=== PATIENT | female | born 1955 | race Caucasian/White ===

== ENCOUNTER 2016-10-13 11:48 | Emergency (ER) | payer BC ==
[~2016-10-13] VITALS: Ht 165.1 cm; Wt 90.0 kg
[~2016-10-13 11:48] MED LIST: LORT7.5T3 PO; Z.0.NO CURRENT MEDS
[2016-10-13 11:51] VITALS: BP 195/90; PULSE 97; RESP 24; TEMP 97.4; O2SAT 96
--- NOTE | 2016-10-13 11:58 | PD ---
Physical Exam Time Seen by Provider: 11:54 Narrative 61 YO female presents by private vehicle with C/O of chest pain x 3 days. Patient reports pain is located under right breast & radiates to the back. Associated with SOB. Severity 01/09. Pain worse today prompting visit. Patient seen at Triage Desk. Vital signs reviewed. Awaiting Tx bed. Data Data Last Documented VS Vital Signs Date Time Temp Pulse Resp B/P Pulse Ox O2 Delivery O2 Flow Rate FiO2 10/13/16 11:51 97.4 97 24 195/90 96 Room Air Orders Electrocardiogram (10/13/16 ) MDM Supervised Visit with QUAN: Jannet Xiong Oct 13, 2016 11:58
[2016-10-13] MEDS ORDERED: ENAL5TAB PO (12:40)
[2016-10-13] MEDS ORDERED: VENTAER INH (12:40)
[2016-10-13] MEDS ORDERED: UMEC1AER INH (12:40)
[2016-10-13] MEDS ORDERED: KETOROLAC TROMETHAMINE 30 MG/ML (IVP) VIAL IV PUSH ONE (13:15)
[2016-10-13] MEDS ORDERED: SODIUM CHLORIDE 0.9% FLUSH 10 ML FLUSH IVF PRN (13:15)
[2016-10-13] MEDS ORDERED: MORPHINE SULFATE 4 MG/ML INJ IV PUSH ONE ×2 (13:15→15:15)
[2016-10-13] MEDS ORDERED: ONDANSETRON HCL 4 MG/2 ML VIAL IV PUSH ONE (13:15)
--- NOTE | 2016-10-13 13:24 | PD ---
HPI Chief Complaint: Chest Pain Time Seen by Provider: 12:42 Travel History International Travel<30 days: No Contact w/Intl Traveler<30days: No Traveled to known affect area: No History of Present Illness HPI The patient is a 61-year-old female who presents emergency department for right sided chest pain at 3 days' duration. The patient complains of right lower chest wall pain radiates from the right upper quadrant of the abdomen and right lower chest wall to the back. The pain is present at rest, sharp, constant, not associated with any nausea or vomiting. The patient's pain is slightly worse with inspiration, however, she denies any acute cough. She denies any acute shortness of breath, does have a history of chronic shortness of breath secondary to COPD. The patient does complain of right sided pain as aforementioned, denies any rash over the affected area and denies any history of shingles. She denies any trauma to the affected area and denies any nausea, vomiting, or postprandial symptoms. She denies any history of gallbladder- related disorders. Symptoms are moderate, there are no current alleviating or exacerbating factors. PFSH Past Medical History Cancer: No COPD: Yes Diabetes: No Hepatitis: No Hiatal Hernia: No Hypertension: Yes Sleep Apnea: Yes Thyroid Disease: No Past Surgical History Gynecologic Surgery: Yes (TUBAL, EXPLORATORY LAP) Pacemaker: No Social History Alcohol Use: No Tobacco Use: Yes Substance Use: No Allergies-Medications (Allergen,Severity, Reaction): Coded Allergies: Sulfa (Unverified Allergy, Intermediate, Rash, 01/01/11) Reported Meds & Prescriptions Reported Meds & Active Scripts Active Reported Enalapril (Enalapril Maleate) 5 Mg Tab 5 Mg PO DAILY Anoro Ellipta Inh (Umeclidinium/Vilanterol) 62.5-25 Mcg/Act Aero 1 Puff INH DAILY Ventolin Hfa 18 GM Inh (Albuterol Sulfate) 90 Mcg/Act Aer 2 Puff INH Q4-6H PRN Review of Systems Except as stated in HPI: all other systems reviewed are Neg General / Constitutional: No: Fever Cardiovascular: Positive: Chest Pain or Discomfort (right sided pain) Respiratory: Positive: Shortness of Breath, Pleuritic Pain Gastrointestinal: No: Nausea, Vomiting, Abdominal Pain Genitourinary: No: Dysuria, Hematuria, Decreased Urinary Output Skin: No Rash Physical Exam Narrative GENERAL: Awake, alert, pleasant 61-year-old female who appears her stated age and is in no acute respiratory distress. SKIN: Focused skin assessment warm/dry. No stigmata of shingles. HEAD: Atraumatic. Normocephalic. EYES: Pupils equal and round. No scleral icterus. No injection or drainage. ENT: No nasal bleeding or discharge. Mucous membranes pink and moist. NECK: Trachea midline. No JVD. CARDIOVASCULAR: Regular rate and rhythm. No murmur appreciated. Heart rate in the 80s. Right chest wall is minimally tender palpation, minimally reproduces pain. RESPIRATORY: No accessory muscle use. Clear to auscultation. Breath sounds equal bilaterally. GASTROINTESTINAL: Abdomen soft, non-tender, nondistended. Negative Lynn's. Back: No CVA tenderness. MUSCULOSKELETAL: No obvious deformities. No clubbing. No cyanosis. No edema. NEUROLOGICAL: Awake and alert. No obvious cranial nerve deficits. Motor grossly within normal limits. Normal speech. PSYCHIATRIC: Appropriate mood and affect; insight and judgment normal. Data Data Last Documented VS Vital Signs Date Time Temp Pulse Resp B/P Pulse Ox O2 Delivery O2 Flow Rate FiO2 10/13/16 15:55 18 10/13/16 15:18 96 Room Air 10/13/16 15:18 74 123/59 10/13/16 11:51 97.4 Orders Electrocardiogram (10/13/16 ) Complete Blood Count With Diff (10/13/16 13:10) Comprehensive Metabolic Panel (10/13/16 13:10) D-Dimer (10/13/16 13:10) Act Partial Throm Time (Ptt) (10/13/16 13:10) Prothrombin Time / Inr (Pt) (10/13/16 13:10) Magnesium (Mg) (10/13/16 13:10) Ckmb (Isoenzyme) Profile (10/13/16 13:10) Troponin I (10/13/16 13:10) Iv Access Insert/Monitor (10/13/16 13:10) Electrocardiogram (10/13/16 13:10) Ecg Monitoring (10/13/16 13:10) Oximetry (10/13/16 13:10) Oxygen Administration (10/13/16 13:10) Chest, Single Ap (10/13/16 13:10) Sodium Chloride 0.9% Flush (Ns Flush) (10/13/16 13:15) Ketorolac Inj (Toradol Inj) (10/13/16 13:15) Morphine Inj (Morphine Inj) (10/13/16 13:15) Ondansetron Inj (Zofran Inj) (10/13/16 13:15) Us Abdomen Gallbladder (10/13/16 ) Urinalysis - C+S If Indicated (10/13/16 13:24) Ct Pulmonary Angiogram (10/13/16 ) Morphine Inj (Morphine Inj) (10/13/16 15:15) Iohexol 350 Inj (Omnipaque 350 Inj) (10/13/16 16:06) Labs Laboratory Tests Test 10/13/16 10/13/16 10/13/16 13:30 14:25 14:35 White Blood Count 7.0 TH/MM3 Red Blood Count 4.70 MIL/MM3 Hemoglobin 14.9 GM/DL Hematocrit 45.1 % Mean Corpuscular Volume 96.0 FL Mean Corpuscular Hemoglobin 31.6 PG Mean Corpuscular Hemoglobin 32.9 % Concent Red Cell Distribution Width 14.0 % Platelet Count 312 TH/MM3 Mean Platelet Volume 8.5 FL Neutrophils (%) (Auto) 89.2 % Lymphocytes (%) (Auto) 8.8 % Monocytes (%) (Auto) 1.5 % Eosinophils (%) (Auto) 0.2 % Basophils (%) (Auto) 0.3 % Neutrophils # (Auto) 6.2 TH/MM3 Lymphocytes # (Auto) 0.6 TH/MM3 Monocytes # (Auto) 0.1 TH/MM3 Eosinophils # (Auto) 0.0 TH/MM3 Basophils # (Auto) 0.0 TH/MM3 CBC Comment DIFF FINAL Differential Comment Prothrombin Time 10.4 SEC Prothromb Time International 0.9 RATIO Ratio Activated Partial 28.9 SEC Thromboplast Time D-Dimer Quantitative (PE/DVT) 0.83 MG/L FEU Sodium Level 139 MEQ/L Potassium Level 4.1 MEQ/L Chloride Level 106 MEQ/L Carbon Dioxide Level 25.7 MEQ/L Anion Gap 7 MEQ/L Blood Urea Nitrogen 13 MG/DL Creatinine 0.76 MG/DL Estimat Glomerular Filtration 77 ML/MIN Rate Random Glucose 120 MG/DL Calcium Level 9.2 MG/DL Magnesium Level 2.1 MG/DL Total Bilirubin 0.2 MG/DL Aspartate Amino Transf 12 U/L (AST/SGOT) Alanine Aminotransferase 22 U/L (ALT/SGPT) Alkaline Phosphatase 78 U/L Total Creatine Kinase 97 U/L Troponin I LESS THAN 0.02 NG/ML Total Protein 7.1 GM/DL Albumin 3.5 GM/DL Urine Color YELLOW Urine Turbidity CLEAR Urine pH 7.5 Urine Specific [place] 1.017 Urine Protein TRACE mg/dL Urine Glucose (UA) NEG mg/dL Urine Ketones NEG mg/dL Urine Occult Blood NEG Urine Nitrite NEG Urine Bilirubin NEG Urine Urobilinogen LESS THAN 2.0 MG/DL Urine Leukocyte Esterase NEG Urine RBC 2 /hpf Urine WBC LESS THAN 1 /hpf Urine Squamous Epithelial 4 /hpf Cells Urine Bacteria RARE /hpf Urine Mucus FEW /lpf Microscopic Urinalysis Comment CULT NOT INDICATED MDM Medical Decision Making Medical Screen Exam Complete: Yes Emergency Medical Condition: Yes Medical Record Reviewed: Yes Interpretation(s) Ultrasound of the gallbladder reveals small amount of sludge in the gallbladder. Otherwise gallbladder is unremarkable sonographically without evidence for acute cholecystitis. Diffuse increased hepatic echogenicity without volume loss consistent with hepatic steatosis. Laboratory Tests Test 10/13/16 10/13/16 10/13/16 13:30 14:25 14:35 White Blood Count 7.0 TH/MM3 Red Blood Count 4.70 MIL/MM3 Hemoglobin 14.9 GM/DL Hematocrit 45.1 % Mean Corpuscular Volume 96.0 FL Mean Corpuscular Hemoglobin 31.6 PG Mean Corpuscular Hemoglobin 32.9 % Concent Red Cell Distribution Width 14.0 % Platelet Count 312 TH/MM3 Mean Platelet Volume 8.5 FL Neutrophils (%) (Auto) 89.2 % Lymphocytes (%) (Auto) 8.8 % Monocytes (%) (Auto) 1.5 % Eosinophils (%) (Auto) 0.2 % Basophils (%) (Auto) 0.3 % Neutrophils # (Auto) 6.2 TH/MM3 Lymphocytes # (Auto) 0.6 TH/MM3 Monocytes # (Auto) 0.1 TH/MM3 Eosinophils # (Auto) 0.0 TH/MM3 Basophils # (Auto) 0.0 TH/MM3 CBC Comment DIFF FINAL Differential Comment Prothrombin Time 10.4 SEC Prothromb Time International 0.9 RATIO Ratio Activated Partial 28.9 SEC Thromboplast Time D-Dimer Quantitative (PE/DVT) 0.83 MG/L FEU Sodium Level 139 MEQ/L Potassium Level 4.1 MEQ/L Chloride Level 106 MEQ/L Carbon Dioxide Level 25.7 MEQ/L Anion Gap 7 MEQ/L Blood Urea Nitrogen 13 MG/DL Creatinine 0.76 MG/DL Estimat Glomerular Filtration 77 ML/MIN Rate Random Glucose 120 MG/DL Calcium Level 9.2 MG/DL Magnesium Level 2.1 MG/DL Total Bilirubin 0.2 MG/DL Aspartate Amino Transf 12 U/L (AST/SGOT) Alanine Aminotransferase 22 U/L (ALT/SGPT) Alkaline Phosphatase 78 U/L Total Creatine Kinase 97 U/L Troponin I LESS THAN 0.02 NG/ML Total Protein 7.1 GM/DL Albumin 3.5 GM/DL Urine Color YELLOW Urine Turbidity CLEAR Urine pH 7.5 Urine Specific Cand[place] 1.017 Urine Protein TRACE mg/dL Urine Glucose (UA) NEG mg/dL Urine Ketones NEG mg/dL Urine Occult Blood NEG Urine Nitrite NEG Urine Bilirubin NEG Urine Urobilinogen LESS THAN 2.0 MG/DL Urine Leukocyte Esterase NEG Urine RBC 2 /hpf Urine WBC LESS THAN 1 /hpf Urine Squamous Epithelial 4 /hpf Cells Urine Bacteria RARE /hpf Urine Mucus FEW /lpf Microscopic Urinalysis Comment CULT NOT INDICATED Last Impressions Chest X-Ray 10/13/16 1310 Signed Impressions: Service Date/Time: Thursday, October 13, 2016 13:30 - CONCLUSION: 1. Mild left lower lobe airspace disease of unknown chronicity. Differential considerations include atelectasis/scarring versus airspace infection or less likely aspiration in the appropriate clinical setting. Hiram Tubbs MD Gall Bladder Ultrasound 10/13/16 0000 Signed Impressions: Service Date/Time: Thursday, October 13, 2016 13:40 - CONCLUSION: 1. Small amount of sludge in the gallbladder. Otherwise, gallbladder is unremarkable sonographically without evidence for acute cholecystitis. 2. Diffusely increased hepatic echogenicity without volume loss consistent with hepatic steatosis. Hiram Tubbs MD CT Angiography 10/13/16 0000 Signed Impressions: Service Date/Time: Thursday, October 13, 2016 16:06 - CONCLUSION: 1. No pulmonary embolus identified. 2. COPD changes. Kole Browne MD Differential Diagnosis Differential diagnosis includes pleurisy, pneumonia, pleural effusion, pulmonary embolism, costochondritis, shingles, choledocholithiasis, cholecystitis, pyelonephritis. Narrative Course IV was established, labs are drawn and sent, and the patient was placed on cardiac telemetry monitoring and continuous pulse oximetry monitoring. EKG was ordered and interpreted. Chest x-ray was obtained. D-dimer was sent to lab. Ultrasound of the gallbladder was ordered. The patient was administered morphine, Toradol, Zofran, and IV fluids. UA was sent to lab. Chest x-ray was negative. Ultrasound reveals sludge but no evidence of acute cholecystitis. D- dimer was positive, therefore, CT pulmonary angiogram was ordered. CT pulmonary angiogram is negative for PE, does reveal COPD. No obvious source of the patient's right sided chest wall pain/flank pain, but UA is negative and she has no urinary symptoms. Patient may have early shingles versus musculoskeletal pain. The patient was redosed with morphine, her symptoms had significantly improved. She will be discharged home on ibuprofen and hydrocodone, will be provided a copy of her workup is advised to see her primary physician tomorrow. Return if symptoms worsen or progress. Diagnosis Primary Impression: Atypical chest pain Patient Instructions: General Instructions, Narcotic given in the ED Additional Instructions: Please provide a patient a copy of her CT results, ultrasound results, lab results, at discharge. Follow-up with your primary physician. Medications as directed. No driving or drinking on hydrocodone. Return if symptoms worsen or progress. Med/Other Pt SpecificInfo: Prescription(s) given Scripts Ibuprofen 400 Mg [id number] Mg PO Q6H PRN (PAIN SCALE 1 TO 10) #20 TAB Ref 0 Prov:Alex Bowers MD 10/13/16 Hydrocodone-Acetaminophen ([place])5-325 mg Tab1 Tab PO Q6H PRN (PAIN) #15 TAB Ref 0 Prov:Alex Bowers MD 10/13/16 Disposition: 01 DISCHARGE HOME Condition: Stable Alex Bowers MD Oct 13, 2016 13:24
[2016-10-13 13:56] LABS: AUTOMATED NEUTROPHIL # 6.2 TH/MM3 (1.8-7.7); BASOPHIL % 0.3 % (0.0-2.0); EOSINOPHIL % 0.2 % (0.0-4.0); HEMATOCRIT 45.1 % (35.0-46.0); HEMO FLAGS DIFF FINAL; LYMPH % 8.8 % (9.0-44.0); LYMPHOCYTE # 0.6 TH/MM3 (1.0-4.8); MEAN CORPUSCULAR HEMOGLOBIN 31.6 PG (27.0-34.0); MEAN CORPUSCULAR HGB CONC 32.9 % (32.0-36.0); MONO % 1.5 % (0.0-8.0); NEUT % 89.2 % (16.0-70.0); PLATELET COUNT 312 TH/MM3 (150-450)
[2016-10-13 14:10] LABS: APTT (PATIENT) 28.9 SEC (24.3-30.1); INTERNATIONAL NORMALIZED RATIO 0.9 RATIO; PROTHROMBIN TIME - PATIENT 10.4 SEC (9.8-11.6)
--- NOTE | 2016-10-13 14:15 | RADRPT ---
EXAM DATE/TIME: 10/13/2016 13:30 [facility] COMPARISON: No previous studies available for comparison. INDICATIONS : Patient is having right breast/chest pain since Tuesday. MEDICAL HISTORY : None. SURGICAL HISTORY : None. ENCOUNTER: Initial ACUITY: 3 days PAIN SCORE: 9/10 LOCATION: Right Breast/chest. FINDINGS: No significant focal pleural or parenchymal opacities in the right lung. There is increased opacity i n the left lung base exaggerated by the overlying breast shadow. Cardiomediastinal contours are withi n normal limits. Osseous structures are intact. Specifically, no significant displaced right-sided ri b fractures. CONCLUSION: 1. Mild left lower lobe airspace disease of unknown chronicity. Differential considerations include a telectasis/scarring versus airspace infection or less likely aspiration in the appropriate clinical s etting. Hiram Tubbs MD on October 13, 2016 at 14:10 Board Certified Radiologist. This report was verified electronically.
--- NOTE | 2016-10-13 14:25 | RADRPT ---
EXAM DATE/TIME: 10/13/2016 13:40 [facility] COMPARISON: No previous studies available for comparison. INDICATIONS : Abdominal pain. MEDICAL HISTORY : Hypertension. Chronic obstructive pulmonary disease. Sleep apnea. Hemorrhoids. SURGICAL HISTORY : Tubal ligation. Exploratory laparoscopy. ENCOUNTER: Initial ACUITY: 4-6 days PAIN SCORE: 5/10 LOCATION: Right upper quadrant MEASUREMENTS: LIVER: 16.9 cm length COMMON DUCT: 4 mm RIGHT KIDNEY: 9.5 x 5.1 x 6.6 cm FINDINGS: LIVER: Diffusely increased echogenicity without evidence for volume loss or intrahepatic ductal dilatation. COMMON DUCT: No intraluminal mass or stone visualized. GALLBLADDER: Small amount of layering sludge in the gallbladder neck. Gallbladder is otherwise unremarkable withou t significant gallbladder wall thickening, pericholecystic fluid, or sonographic Lynn sign. PANCREAS: The visualized portions are within normal limits. RIGHT KIDNEY: No evidence of hydronephrosis, stone, or mass. CONCLUSION: 1. Small amount of sludge in the gallbladder. Otherwise, gallbladder is unremarkable sonographically without evidence for acute cholecystitis. 2. Diffusely increased hepatic echogenicity without volume loss consistent with hepatic steatosis. Hiram Tubbs MD on October 13, 2016 at 14:20 Board Certified Radiologist. This report was verified electronically.
[2016-10-13 15:05] LABS: BACTERIA, URINE RARE /hpf; BLOOD, URINE NEG (NEG); COMMENT (UR) CULT NOT INDICATED; CULTURE IF INDICATED CULT NOT INDICATED; GLUCOSE,URINE NEG (NEG); KETONE, URINE NEG (NEG); MUCUS URINE FEW /lpf (OCC); NITRITE,URINE NEG (NEG); PH, URINE 7.5 (5.0-8.5); SQUAMOUS EPITHELIAL CELL URINE 4 /hpf (0-5); URINE COLOR YELLOW (YELLW/STRAW)
[2016-10-13 15:18] VITALS: BP 123/59; PULSE 72; PULSE 74; RESP 18; O2SAT 96
[2016-10-13 15:29] LABS: ALT (GPT) 22 U/L (10-53); ANION GAP 7 MEQ/L (5-15); AST (GOT) 12 U/L (15-37); BICARBONATE 25.7 MEQ/L (21.0-32.0); BLOOD UREA NITROGEN 13 MG/DL (7-18); CHLORIDE 106 MEQ/L (98-107); GLOMERULAR FILTRATION RATE 77 ML/MIN (>89); MAGNESIUM 2.1 MG/DL (1.5-2.5); POTASSIUM 4.1 MEQ/L (3.5-5.1); SODIUM (NA) 139 MEQ/L (136-145)
[2016-10-13 15:33] LABS: ALKALINE PHOSPHATASE 78 U/L (45-117); TOTAL BILIRUBIN ADULT 0.2 MG/DL (0.2-1.0)
[2016-10-13 15:38] LABS: CREATINE KINASE 97 U/L (26-192)
[2016-10-13 15:55] VITALS: RESP 18
[2016-10-13] MEDS ORDERED: IOHEXOL 350 MG/ML 10 ML VIAL (for RAD DIAG) IV ONE (16:06)
--- NOTE | 2016-10-13 16:41 | RADRPT ---
EXAM DATE/TIME: 10/13/2016 16:06 [facility] COMPARISON: No previous studies available for comparison. INDICATIONS : Right pleuritic pain; elevated d-dimer. Rule out pulmonary embolus. IV CONTRAST: 79 cc Omnipaque 350 (iohexol) IV RADIATION DOSE: 23.46 CTDIvol (mGy) MEDICAL HISTORY : Hypertension. Chronic obstructive pulmonary disease. SURGICAL HISTORY : None. ENCOUNTER: Initial ACUITY: 3 days PAIN SCALE: 5/10 LOCATION: chest TECHNIQUE: Volumetric scanning of the chest was performed using a pulmonary embolism protocol MIP images were re constructed. Using automated exposure control and adjustment of the mA and/or kV according to patien t size, radiation dose was kept as low as reasonably achievable to obtain optimal diagnostic quality images. FINDINGS: PULMONARY ARTERIES: No filling defects are seen in the pulmonary arteries through the segmental level. LUNGS: The examination demonstrates COPD changes. There is a small emphysematous bleb in the anterior aspect of the right lower lobe. There is a small area of scarring at the right lung base. No suspicious les ions are seen. PLEURAE: There is no pleural thickening or pleural effusion. MEDIASTINUM: There is good visualization of the great vessels of the middle mediastinum. No evidence of mediastin al or hilar adenopathy/mass. There is atherosclerotic plaquing in the coronary arteries. MUSCULOSKELETAL: Within normal limits for patient age. MISCELLANEOUS: The visualized upper abdominal organs demonstrate a 1.5 x 2.2 cm left adrenal nodule. This measures a n average of 22 Houn[place] the units and is most consistent with benign adenoma.. CONCLUSION: 1. No pulmonary embolus identified. 2. COPD changes. Kole Browne MD on October 13, 2016 at 16:25 Board Certified Radiologist. This report was verified electronically.
[2016-10-13] MEDS ORDERED: NORC5TAB PO (17:09)
[2016-10-13] MEDS ORDERED: IBUP400T20 PO (17:09)
[2016-10-13 18:16] VITALS: BP 140/72
--- NOTE | 2016-10-14 15:00 | EKG ---
Date Performed: 10/13/2016 Time Performed: 12:02:39 PTAGE: 61 years EKG: Sinus rhythm NORMAL ECG NO PREVIOUS TRACING DOCTOR: Cisco Oviedo Interpretating Date/Time 10/14/2016 14:56:51
== END 2016-10-13 18:18 | disposition home or self-care (01) ==
LOC: NEPC 11:48
DX: R07.89 Other chest pain (principal); J44.9 Chronic obstructive pulmonary disease, unspecified; I10 Essential (primary) hypertension; G47.30 Sleep apnea, unspecified
CPT/HCPCS: 71010; 71275; 76705; 80053; 81001; 82550; 83735; 84484; 85025; 85379; 85610; 85730; 93005; 96374; 96375; 96376; 99285; J1885; J2270; J2405; Q9967